=== PATIENT | male | born 1980 | race Caucasian/White ===

== ENCOUNTER 2017-04-11 20:16 | Emergency (ER) | payer SELFPAY ==
[2017-04-11 20:24] VITALS: BP 149/94; BMI 45.9
--- NOTE | 2017-04-11 21:07 | DR.GENAD ---
HPI - Complaint/Symptoms Chief Complaint Doctors Comments: Patient states he was coughing and suddenly he stopped breathing, eyes looke bloody, staring like he did not know where he was lasting about two minutes. States he did not have any shaking episodes nor did he have urine or fecal incontinent. States he smokes cannabis three times daily about 0.3 ug. He has been complaining of chest pain, headache and blurred vision with nausea but no vomiting. States he has schizo- affective disorder and is taking Depokoate 500mg daily; Effexon, Albilify; Lisinopril; omeprazole; mobic 15 and xanax 0.5mg bid. States he was told he has had seizures in the past. states his father has history of bad seizures. He denies alcohol usage. Chief Complaint:: pt states pt was having a "coughing fit" and he lost his breath and "slumped over" Self Treatment fo Chief Complaint: pt takes symbicort - Nurses notes reviewed Nurses Notes Review: Yes - Source History Provided: Patient - Mode of Arrival Mode of Arrival: Ambulatory - Timing Onset of Chief Complaint: 04/11/17 Came on: Suddenly - Duration Duration: Intermittent How lon Duration: Hours - Location Location: diffuse headache - Severity Severity: Moderate - Modifying Factors Worsens:: nothing Improves:: nothing PMH - PMH Past Medical History: Yes Past Medical History: Anxiety, Arthritis, Asthma, COPD, Depression, GERD, Hypertension, Schizophrenia Past Surgical History: No Surgical History: Unknown - Family History History of Family Medical Conditions: Yes Family Medical History: Diabetes Mellitus, Cancer, [place], Hypertension - Social History Do you use any recreational Drugs:: Yes (THC) - infectious screening Have you traveled outside the country in the last 6 months?: No ROS - Review of Systems Constitutional: No Symptoms Reported. negative: See HPI, Chills, Diaphoresis, Fever, Malaise, Weakness, Irritable, Fatigue, Loss of Appetite, Other Eyes: No Symptoms Reported, Blurred Vision. negative: See HPI, Eye Pain, Tearing, Discharge, Photophobia, Diplopia, Other ENTM: No Symptoms Reported. negative: See HPI, Ear Pain, Ear Discharge, Pulling on Ears, Hearing Loss, Nose Pain, Nose Discharge, Epistaxis, Nose Congestion, Mouth Pain, Mouth Swelling, Loose Teeth, Drooling, Throat Pain, Throat Swelling, Ear Foreign Body Respiratoy: No Symptoms Reported. negative: See HPI, Productive Cough, Non- Productive Cough, Moist Cough, Dry Cough, Hacking Cough, Barking Cough, Brassy Cough, Orthopnea, Short of Breath, Stridor, Wheezing, Hemoptysis, Other Cardiovascular: Chest Pain Gastrointestinal/Abdominal: No Symptoms Reported, Nausea. negative: See HPI, Abdominal Pain, Constipation, Diarrhea, Vomiting, Food Intolerance, Other Genitourinary: No Symptoms Reported. negative: See HPI, Discharge, Dysuria, Frequency, Hematuria, Pain, Bleeding, Other Neurological: No Symptoms Reported, Emotional Problems, Headache, Dizziness Musculoskeletal: No Symptoms Reported Integumentary: No Symptoms Reported Hematologic/Lymphatic: No Symptoms Reported Endocrine: No Symptoms Reported Psychiatric: No Symptoms Reported, Anxiety PE - Vital Signs Vitals: Pulse Rate 100 Respiratory Rate 18 Blood Pressure 149/94 O2 Sat by Pulse Oximetry 98 - General Limitations: No Limitations General Appearance: Alert, In No Apparent Distress - Head Head Exam: Normal Inspection, Atraumatic, Normocephalic - Eyes Eye exam: Normal Appearance, PERRL, EOMI. negative: Scleral Icterus, Conjunctival Injection, Nystagmus, Miosis, Mydrasis, Periorbital Swelling, Periorbital Tenderness, Other - ENT ENT Exam: Normal Exam, Normal Oropharynx, Normal External Ear Exam, TM's Normal Bilaterally. negative: Mucous Membranes Moist, Mucous Membranes Dry, Other External Ear Exam: Normal External Inspection. negative: Auricular Hematoma, Auricular Trauma, Mastoid Tenderness, Pain with Movement, External Tenderness, Periauricular Adenopathy, Other TM/Canal Exam: Bilateral Normal Nose Exam: Normal Nose Exam Mouth Exam: Normal Inspection. negative: Drooling, Trismus, Lip Swelling, Tongue Elevation, Tongue Swelling, Laceration, Other Throat Exam: Normal Inspection - Neck Neck Exam: Normal Inspection, Full ROM, Trachea Midline. negative: Tenderness, Meningismus, Lymphadenopathy, Thyromegaly, Other - Chest Chest Inspection: Normal Inspection, Symmetric Chest Wall Rise. negative: Tenderness, Rash, Abscess, Other - Respiratory Respiratory Exam: Normal Lung Sounds Bilat Respiratory Exam: Bilateral Clear to Auscultation - Cardiovascular Cardiovascular Exam: Regular Rate, Normal Rhythm, Normal Heart Sounds. negative : Bradycardia, Tachycardia, Irregular Rhythm, Systolic Murmur, Diastolic Murmur , Rubs, Gallop, Clicks, JVD, +S1, +S2, +S3, +S4, Other - Abdominal Exam Abdominal Exam: Normal Inspection, Normal Bowel Sounds, Soft. negative: Distention, Tenderness, Guarding, Rebound, Rigidity, Dimnished Bowel Sounds, Hyperactive Bowel Sounds, Hypoactive Bowel Sounds, Organomegaly, Trauma, Incision, Ascites, Mass, Bruit, Pulsatile Mass, Hernia, Other Abdominal Tenderness: negative: RUQ, RLQ, LUQ, LLQ, Epigastrium, Suprapubic, Diffuse, Mild, Moderate, Severe, Other - Extremities Extremities Exam: Normal Inspection, Full ROM, Normal Capillary Refill. negative: Tenderness, Edema, Joint Swelling, Calf Tenderness, Other - Back Back Exam: Normal Inspection, Full ROM. negative: Tenderness, (R) CVA Tenderness, (L) CVA Tenderness, Muscle Spasm, Paraspinal Tenderness, Vertebral Tenderness, Rashes, (R) Sciatic Notch Tenderness, (L) Sciatic Notch Tendern, (R ) Straight Leg Raise, (L) Straight Leg Raise, Other - Neurologic Neurological Exam: Alert, Oriented X3, CN II-XII Intact, Normal Gait, Reflexes Normal - Psychiatric Psychiatric Exam: Normal Affect, Normal Mood, Depressed - Skin Skin Exam: Warm, Dry, Intact, Normal Color ROR - Labs Reviewed Laboratory Results Reviewed?: Yes (all labs and x-ray results reviewed and discussed with patient) Result Diagrams: 04/11/17 21:20 04/11/17 21:20 Laboratory: WBC 14.2 X10^3/uL (3.6-10.0) H 04/11/17 21:20 RBC 3.99 X10^6/uL (4.7-6.0) L 04/11/17 21:20 Hgb 11.7 g/dL (13.5-18.0) L 04/11/17 21:20 Hct 34.5 % (42.0-54.0) L 04/11/17 21:20 MCV 86.3 fL (80.0-100.0) 04/11/17 21:20 MCH 29.4 pg (27.0-34.0) 04/11/17 21:20 MCHC 34.0 g/dL (33.0-35.0) 04/11/17 21:20 RDW 12.6 % (11.6-16.5) 04/11/17 21:20 Plt Count 363 X10^3/uL (150.0-450.0) 04/11/17 21:20 MPV 8.3 fL (7.4-11.0) 04/11/17 21:20 Neut % 68.4 % (42.0-75.0) 04/11/17 21:20 Lymph % 20.6 % (21.0-51.0) L 04/11/17 21:20 [place]son % 7.0 % (0.0-13.0) 04/11/17 21:20 Eos % 2.7 % (0.9-2.9) 04/11/17 21:20 Baso % 1.3 % (0.2-1.0) H 04/11/17 21:20 Neut # 9.7 x10^3/uL (2.2-4.8) H 04/11/17 21:20 Lymph # 2.9 X10^3/uL (1.3-2.9) 04/11/17 21:20 [place] # 1.0 x10^3/uL (0.3-0.8) H 04/11/17 21:20 Eos # 0.4 x10^3/uL (0.0-0.2) H 04/11/17 21:20 Baso # 0.2 X10^3/uL (0.0-0.1) H 04/11/17 21:20 Absolute Nucleated RBC 0.0 /100WBC 04/11/17 21:20 INR Target Range - 04/11/17 21:20 INR 0.95 (0.8-1.3) 04/11/17 21:20 PTT 29.7 SECONDS (22.9-36.5) 04/11/17 21:20 PTT Comment - 04/11/17 21:20 D-Dimer < 100 ng/mL (0-400) 04/11/17 21:20 Sodium 140 mmol/L (136-145) 04/11/17 21:20 Corrected Sodium 141 mmol/L (136-145) 04/11/17 21:20 Potassium 3.4 mmol/L (3.5-5.1) L 04/11/17 21:20 Chloride 104 mmol/L (98-107) 04/11/17 21:20 Carbon Dioxide 27.6 mmol/L (21-32) 04/11/17 21:20 BUN 10 mg/dL (7-18) 04/11/17 21:20 Creatinine 1.09 mg/dL (0.70-1.30) 04/11/17 21:20 Est GFR (MDRD) Af Amer > 60 (>60) 04/11/17 21:20 Est GFR (MDRD) Non-Af > 60 (>60) 04/11/17 21:20 Glucose 129 mg/dL (65-99) H 04/11/17 21:20 Calcium 8.9 mg/dL (8.5-10.1) 04/11/17 21:20 Corrected Calcium 9.5 mg/dL (8.5-10.1) 04/11/17 21:20 Magnesium 2.0 mg/dL (1.7-2.9) 04/11/17 21:20 Total Bilirubin 0.20 mg/dL (0.2-1.0) 04/11/17 21:20 AST 20 Units/L (15-37) 04/11/17 21:20 ALT 42 Units/L (12-78) 04/11/17 21:20 Alkaline Phosphatase 86 Units/L (46-116) 04/11/17 21:20 Creatine Kinase 153 Units/L (39-308) 04/11/17 21:20 CK-MB (CK-2) 1.1 ng/mL (0-4.0) 04/11/17 21:20 CK/CKMB % Calc 0.7 % (<4) 04/11/17 21:20 Troponin I < 0.02 ng/mL (0-1.5) 04/11/17 21:20 Total Protein 7.0 g/dL (6.4-8.2) 04/11/17 21:20 Albumin 3.3 g/dL (3.4-5.0) L 04/11/17 21:20 Globulin 3.7 g/dL (2.5-4.5) 04/11/17 21:20 Albumin/Globulin Ratio 0.9 Ratio (1.1-2.1) L 04/11/17 21:20 Valproic Acid 5.6 ug/mL (50-100) L 04/11/17 21:20 - XRAY XRAY Interpreted by: Radiologist (CT brain: no acute intracranial proces can be identified) - Diagnosis Discharge Problem: Bronchitis, probable seizure disorder, Headache, Essential hypertension, Hyperkalemia - Discharge Plan Disposition: 01 HOME, SELF-CARE Condition: Stable Prescriptions: Albuterol Sulfate [VENTOLIN or PROAIR HFA Inhaler *] 2 puff INH Q4H PRN #1 inh PRN Reason: Asthma Symptoms Ciprofloxacin HCl [CIPRO 500 MG TAB *] 500 mg PO Q12H #20 tab - Follow ups/Referrals Follow ups/Referrals: DEREK BLOOM [Primary Care Provider] - 3 days - Instructions Instructions: Epilepsy, [id number], Hypertension, [id number], Acute Bronchitis
[2017-04-11 21:34] LABS: BASOPHILS # (AUTO) 0.2 X10^3/uL (0.0-0.1); BASOPHILS % (AUTO) 1.3 % (0.2-1.0); EOSINOPHILS # (AUTO) 0.4 x10^3/uL (0.0-0.2); EOSINOPHILS % (AUTO) 2.7 % (0.9-2.9); HEMATOCRIT 34.5 % (42.0-54.0); HEMOGLOBIN 11.7 g/dL (13.5-18.0); LYMPHOCYTES # (AUTO) 2.9 X10^3/uL (1.3-2.9); LYMPHOCYTES % (AUTO) 20.6 % (21.0-51.0); MEAN CORPUSCULAR HEMOGLOBIN 29.4 pg (27.0-34.0); MEAN CORPUSCULAR VOLUME 86.3 fL (80.0-100.0); MEAN PLATELET VOLUME 8.3 fL (7.4-11.0); NEUTROPHILS # (AUTO) 9.7 x10^3/uL (2.2-4.8); NEUTROPHILS % (AUTO) 68.4 % (42.0-75.0); PLATELET COUNT 363 X10^3/uL (150.0-450.0); RED BLOOD COUNT 3.99 X10^6/uL (4.7-6.0); RED CELL DISTRIBUTION WIDTH 12.6 % (11.6-16.5); WHITE BLOOD COUNT 14.2 X10^3/uL (3.6-10.0)
[2017-04-11 21:48] LABS: BLOOD UREA NITROGEN 10 mg/dL (7-18); CALCIUM 8.9 mg/dL (8.5-10.1); CARBON DIOXIDE 27.6 mmol/L (21-32); CHLORIDE 104 mmol/L (98-107); COR NA(FOR HYPERGLY) 141 mmol/L (136-145); CREATININE 1.09 mg/dL (0.70-1.30); SODIUM 140 mmol/L (136-145); TROPONIN I < 0.02 ng/mL (0-1.5); VALPROIC ACID 5.6 ug/mL (50-100); eGFR BLACK RACES > 60 (>60); eGFR NON BLACK RACES > 60 (>60)
[2017-04-11 21:51] LABS: D DIMER < 100 ng/mL (0-400)
[2017-04-11 21:52] LABS: ALANINE AMINOTRANSFERASE 42 Units/L (12-78); ALBUMIN 3.3 g/dL (3.4-5.0); ALKALINE PHOSPHATASE 86 Units/L (46-116); ASPARTATE AMINO TRANSFERASE 20 Units/L (15-37); CKMB % 0.7 % (<4); COR CA(FOR HYPOALB) 9.5 mg/dL (8.5-10.1); CREATINE KINASE 153 Units/L (39-308); CREATINE KINASE MB 1.1 ng/mL (0-4.0)
--- NOTE | 2017-04-11 22:38 | CT ---
HISTORY: Cough, syncope. History of seizure. Study: CT brain without contrast Comparison: 08/03/2013 Technique: Multiple axial images of the brain were obtained from the skull base to the vertex without administra tion of IV contrast. Automated exposure control (AEC) was utilized to adjust the MA and/or kV accordi ng to patient size. Findings: There is no acute intracranial hemorrhage. The brain parenchyma is normal in density. No mass or ma ss effect. No abnormal extra-axial fluid collection. The ventricles are normal in size, shape and position. Basilar cisterns patent. Owens matter -white m atter interface is distinct. The bilateral mastoid air cells and included paranasal sinuses are predominantly clear. There is no acute osseous abnormality. IMPRESSION: 1. No acute intracranial process can be identified. Reported By:
[2017-04-11] MEDS ORDERED: DUONEB 0.5 MG/3 MG NEB ONE (23:24)
[2017-04-11] MEDS ORDERED: DUONEB 0.5 MG/3 MG ONE (23:33)
[2017-04-11] MEDS ORDERED: LEVAQUIN TAB 500 MG ONE (23:36)
[2017-04-11] MEDS ORDERED: LEVAQUIN TAB 500 MG PO SCH (23:45)
--- NOTE | 2017-04-12 00:17 | RAD ---
HISTORY: Chest pain Study: AP chest. Comparison:NONE Findings: The lungs are clear. No consolidation. There are no pleural effusions. The deanna and cardiomediastinal silhouette appear normal. IMPRESSION: 1. No radiographic evidence of an acute cardiopulmonary process. Reported By:
== END 2017-04-12 00:04 | disposition home or self-care (01) ==
LOC: ER 20:16
DX: J40 Bronchitis, not specified as acute or chronic (principal); R51 Headache; I10 Essential (primary) hypertension; E87.5 Hyperkalemia
CPT/HCPCS: 36415; 70450; 71010; 80053; 80164; 82550; 82553; 83735; 84484; 85025; 85378; 85610; 85730; 93005; 93010; 94640; 99283; J7620

== ENCOUNTER 2017-12-14 14:37 | Emergency (ER) | payer SELFPAY ==
[2017-12-14 14:50] VITALS: BMI 33.0
--- NOTE | 2017-12-14 15:50 | DR.GENAD ---
HPI - HPI Comment HPI Comment: SAID FRIEND BROUGHT PATIENT TO HER AT HOME SAYING PATIENT TOOK 15 PILLS OF TRAZODON AND THE SAME FRIEND TEXT THE THAT PATIENT TOOK A HAND FULL OF ATIVAN ALSO. PATIENT SAID HE TOOK MED TO HELP HIM TAKE A NAP. HE DENIES SUICIDAL AND HOMICIDAL IDEATION. SAID SHE IS CONCERN ABOUT PATIENT. HE IS OUT OF - Complaint/Symptoms Chief Complaint Doctors Comments: ALLEGE DRUG OVERDOSE THIS AFTERNOON. Chief Complaint:: Pt states, "I just wanted to take a nap. I don't want to be seen here or admitted. I'd like to sign myself out." Per EMS and [facility] Office pt admitted to take Ativan of unknown amount and at least 20 trazadones. Pt currently denies any suicidal ideations or intent to harm himself. - Nurses notes reviewed Nurses Notes Review: Yes - Source History Provided: Patient, Parent - Mode of Arrival Mode of Arrival: Stretcher - Timing Onset of Chief Complaint: 12/14/17 Came on: Suddenly - Duration Duration: Constant Duration: Hours - Severity Severity: Moderate PMH - PMH Past Medical History: Yes Past Medical History: Hypertension, Schizophrenia Past Medical History Comment: Degenerative Disc Disease Past Surgical History: Yes Surgical History: Unknown Past Surgical History Comment: ear surgery - Family History History of Family Medical Conditions: Yes Family Medical History: Diabetes Mellitus, Hypertension - Social History Does patient currently use any type of tobacco product: Yes Have you used tobacco products in the last 12 months: No Type of Tobacco Use: Cigarettes Does any household member use tobacco: Yes Alcohol Use: None Do you use any recreational Drugs:: Yes (marijuana) Lives Where: Home - infectious screening In the last 2 months have you had wt loss of >10#?: NO Have you had fever, night sweats or hemotysis?: No Have you traveled outside the country in the last 6 months?: No Isolation: Standard ROS - Review of Systems Constitutional: No Symptoms Reported Eyes: No Symptoms Reported ENTM: No Symptoms Reported Respiratoy: No Symptoms Reported Cardiovascular: No Symptoms Reported Gastrointestinal/Abdominal: No Symptoms Reported Genitourinary: No Symptoms Reported Neurological: No Symptoms Reported Musculoskeletal: No Symptoms Reported Integumentary: No Symptoms Reported Hematologic/Lymphatic: No Symptoms Reported Endocrine: No Symptoms Reported Psychiatric: Hallucinations (CHRONIC) All Other Systems: Reviewed and Negative PE - Vital Signs Vitals: Temperature 98.0 F Pulse Rate [Left] 100 Pulse Rate 95 Respiratory Rate 18 Blood Pressure [Left Arm] 142/88 Blood Pressure 159/89 O2 Sat by Pulse Oximetry 97 - General Limitations: No Limitations General Appearance: Alert - Head Head Exam: Normal Inspection - Eyes Eye exam: Normal Appearance - ENT ENT Exam: Normal External Ear Exam External Ear Exam: Normal External Inspection TM/Canal Exam: Bilateral Normal Nose Exam: Normal Nose Exam Mouth Exam: Normal Inspection Throat Exam: Normal Inspection - Neck Neck Exam: Trachea Midline - Chest Chest Inspection: Symmetric Chest Wall Rise - Respiratory Respiratory Exam: Normal Lung Sounds Bilat Respiratory Exam: Bilateral Clear to Auscultation - Cardiovascular Cardiovascular Exam: Regular Rate, Normal Rhythm, Normal Heart Sounds - Abdominal Exam Abdominal Exam: Normal Bowel Sounds, Soft. negative: Tenderness - Extremities Extremities Exam: Normal Inspection - Back Back Exam: Normal Inspection - Neurologic Neurological Exam: Alert, Oriented X3 - Psychiatric Psychiatric Exam: Anxious - Skin Skin Exam: Normal Color MDM - Additional Information Additional Information Obtained From: Family - Differential Diagnosis Differential Diagnosis: ALLEGE DRUG OVERDOSE, MEDICAL CLEARANCE, SUBSTANCE ABUSE , Course - Treatment Treatment: SEE ORDERS. - Consultation Consultation Comments: MENTAL HEALTH CONSULT. PATIENT MEDICALLY CLEAR. - Education/Counseling Education/Counseling: Patient, Family, Education Educated On: Diagnosis, Needs for Follow Up ROR - Labs Reviewed Laboratory Results Reviewed?: Yes Result Diagrams: 12/15/17 06:58 12/14/17 17:38 Laboratory: WBC 11.9 X10^3/uL (3.6-10.0) H 12/15/17 06:58 RBC 4.79 X10^6/uL (4.7-6.0) 12/15/17 06:58 Hgb 13.8 g/dL (13.5-18.0) 12/15/17 06:58 Hct 40.2 % (42.0-54.0) L 12/15/17 06:58 MCV 84.0 fL (80.0-100.0) 12/15/17 06:58 MCH 28.7 pg (27.0-34.0) 12/15/17 06:58 MCHC 34.2 g/dL (33.0-35.0) 12/15/17 06:58 RDW 13.0 % (11.6-16.5) 12/15/17 06:58 Plt Count 367 X10^3/uL (150.0-450.0) 12/15/17 06:58 MPV 8.8 fL (7.4-11.0) 12/15/17 06:58 Neut % (Auto) 72.8 % (42.0-75.0) 12/15/17 06:58 Lymph % (Auto) 19.8 % (21.0-51.0) L 12/15/17 06:58 [place] % (Auto) 5.6 % (0.0-13.0) 12/15/17 06:58 Eos % (Auto) 0.9 % (0.9-2.9) 12/15/17 06:58 Baso % (Auto) 0.9 % (0.2-1.0) 12/15/17 06:58 Neut # (Auto) 8.7 x10^3/uL (2.2-4.8) H 12/15/17 06:58 Lymph # (Auto) 2.3 X10^3/uL (1.3-2.9) 12/15/17 06:58 [place] # (Auto) 0.7 x10^3/uL (0.3-0.8) 12/15/17 06:58 Eos # (Auto) 0.1 x10^3/uL (0.0-0.2) 12/15/17 06:58 Baso # (Auto) 0.1 X10^3/uL (0.0-0.1) 12/15/17 06:58 Absolute Nucleated RBC 0.0 /100WBC 12/15/17 06:58 Sodium 137 mmol/L (136-145) 12/14/17 17:38 Corrected Sodium TNP 12/14/17 17:38 Potassium 3.4 mmol/L (3.5-5.1) L 12/14/17 17:38 Chloride 103 mmol/L (98-107) 12/14/17 17:38 Carbon Dioxide 21.5 mmol/L (21-32) 12/14/17 17:38 BUN 8 mg/dL (7-18) 12/14/17 17:38 Creatinine 1.10 mg/dL (0.70-1.30) 12/14/17 17:38 Est GFR (MDRD) Af Amer > 60 (>60) 12/14/17 17:38 Est GFR (MDRD) Non-Af > 60 (>60) 12/14/17 17:38 Glucose 110 mg/dL (65-99) H 12/14/17 17:38 Calcium 8.4 mg/dL (8.5-10.1) L 12/14/17 17:38 Corrected Calcium TNP 12/14/17 17:38 Total Bilirubin 0.60 mg/dL (0.2-1.0) 12/14/17 17:38 AST 22 Units/L (15-37) 12/14/17 17:38 ALT 34 Units/L (12-78) 12/14/17 17:38 Alkaline Phosphatase 79 Units/L (46-116) 12/14/17 17:38 Total Protein 8.0 g/dL (6.4-8.2) 12/14/17 17:38 Albumin 4.0 g/dL (3.4-5.0) 12/14/17 17:38 Globulin 4.0 g/dL (2.5-4.5) 12/14/17 17:38 Albumin/Globulin Ratio 1.0 Ratio (1.1-2.1) L 12/14/17 17:38 Specimen Type Clean catch urine 12/14/17 17:53 Urine Color Yellow (YELLOW) 12/14/17 17:53 Urine Appearance Slightly hazy (CLEAR) 12/14/17 17:53 Urine pH 5.0 (5.0 - 8.0) 12/14/17 17:53 Ur Specific [place] 1.015 (1.000-1.030) 12/14/17 17:53 Urine Protein 1+ (NEGATIVE) 12/14/17 17:53 Urine Glucose (UA) Negative (NEGATIVE) 12/14/17 17:53 Urine Ketones Negative (NEGATIVE) 12/14/17 17:53 Urine Occult Blood 1+ (NEGATIVE) 12/14/17 17:53 Urine Nitrite Negative (NEGATIVE) 12/14/17 17:53 Urine Bilirubin Negative (NEGATIVE) 12/14/17 17:53 Urine Urobilinogen Normal (NORMAL) 12/14/17 17:53 Ur Leukocyte Esterase 1+ (NEGATIVE) 12/14/17 17:53 Urine RBC 0-2 /HPF (NONE SEEN) 12/14/17 17:53 Urine WBC 0-2 /HPF (NONE SEEN) 12/14/17 17:53 Ur Squamous Epith Cells Negative /HPF (NEGATIVE) 12/14/17 17:53 Urine Bacteria Negative /HPF (NEGATIVE) 12/14/17 17:53 Urine Mucus Few /HPF (NEGATIVE) 12/14/17 17:53 Ur Culture Indicated? No/not indicated 12/14/17 17:53 Salicylates < 2.8 mg/dL (2.8-20) L 12/14/17 17:38 Urine Opiates Screen Negative (NEG=<300) 12/14/17 17:53 Urine Methadone Screen Negative (NEG=<300) 12/14/17 17:53 Acetaminophen 0.0 ug/mL (10-30) L 12/14/17 17:38 Ur Barbiturates Screen Negative (NEG=<200) 12/14/17 17:53 Ur Phencyclidine Scrn Negative (NEG=<25) 12/14/17 17:53 Ur Amphetamines Screen Negative (NEG=<1000) 12/14/17 17:53 U Benzodiazepines Scrn Negative (NEG=<200) 12/14/17 17:53 Urine Cocaine Screen Positive (NEG=<300) 12/14/17 17:53 U Marijuana (THC) Screen Positive (NEG=<50) A 12/14/17 17:53 Ethyl Alcohol mg/dL < 3 mg/dL (0-19.9) 12/14/17 17:38 - EKG Rhythm: NSR (EKG NOTED) - Diagnosis Discharge Problem: Drug abuse Schizophrenia Qualifiers: Schizophrenia type: unspecified Qualified Code(s): F20.9 - Schizophrenia, unspecified Drug overdose Qualifiers: Encounter type: initial encounter Injury intent: undetermined intent Qualified Code(s): T50.904A - Poisoning by unspecified drugs, medicaments and biological substances, undetermined, initial encounter - Discharge Plan Condition: Stable - Follow ups/Referrals Follow ups/Referrals: NFD,None [Primary Care Provider] - 3 days - Instructions
[2017-12-14 17:46] LABS: BASOPHILS # (AUTO) 0.1 X10^3/uL (0.0-0.1); BASOPHILS % (AUTO) 0.8 % (0.2-1.0); EOSINOPHILS # (AUTO) 0.1 x10^3/uL (0.0-0.2); EOSINOPHILS % (AUTO) 0.7 % (0.9-2.9); HEMATOCRIT 39.5 % (42.0-54.0); HEMOGLOBIN 13.5 g/dL (13.5-18.0); LYMPHOCYTES # (AUTO) 2.6 X10^3/uL (1.3-2.9); LYMPHOCYTES % (AUTO) 17.2 % (21.0-51.0); MEAN CORPUSCULAR HEMOGLOBIN 28.6 pg (27.0-34.0); MEAN CORPUSCULAR HGB CONC 34.2 g/dL (33.0-35.0); MEAN CORPUSCULAR VOLUME 83.6 fL (80.0-100.0); MEAN PLATELET VOLUME 8.5 fL (7.4-11.0); MONOCYTES % (AUTO) 6.3 % (0.0-13.0); NEUTROPHILS # (AUTO) 11.4 x10^3/uL (2.2-4.8); PLATELET COUNT 353 X10^3/uL (150.0-450.0); RED BLOOD COUNT 4.73 X10^6/uL (4.7-6.0); WHITE BLOOD COUNT 15.2 X10^3/uL (3.6-10.0)
[2017-12-14 18:14] LABS: BILIRUBIN,URINE NEGATIVE (NEGATIVE); BLOOD/HEMOGLOBIN,URINE 1+ (NEGATIVE); GLUCOSE, URINE NEGATIVE (NEGATIVE); KETONES,URINE NEGATIVE (NEGATIVE); LEUKOCYTE ESTERASE ,URINE 1+ (NEGATIVE); NITRITES,URINE NEGATIVE (NEGATIVE); PROTEIN,URINE 1+ (NEGATIVE); UROBILINOGEN,URINE NORMAL (NORMAL)
[2017-12-14 18:19] LABS: COLOR,URINE YELLOW (YELLOW)
[2017-12-14 18:21] LABS: APPEARANCE,URINE SLIGHTLY HAZY (CLEAR)
[2017-12-14 18:22] LABS: BACTERIA,URINE NEGATIVE /HPF (NEGATIVE); MUCUS,URINE FEW /HPF (NEGATIVE); RBC,URINE 0-2 /HPF (NONE SEEN); SQUAMOUS EPITHELIAL CELL,UR NEGATIVE /HPF (NEGATIVE)
[2017-12-14 18:38] LABS: SALICYLATE < 2.8 mg/dL (2.8-20)
[2017-12-14 18:45] LABS: ALANINE AMINOTRANSFERASE 34 Units/L (12-78); ALKALINE PHOSPHATASE 79 Units/L (46-116); ASPARTATE AMINO TRANSFERASE 22 Units/L (15-37); BLOOD UREA NITROGEN 8 mg/dL (7-18); CALCIUM 8.4 mg/dL (8.5-10.1); CARBON DIOXIDE 21.5 mmol/L (21-32); CHLORIDE 103 mmol/L (98-107); SODIUM 137 mmol/L (136-145); eGFR BLACK RACES > 60 (>60); eGFR NON BLACK RACES > 60 (>60)
[2017-12-14 18:47] LABS: BLOOD ALCOHOL < 3 mg/dL (0-19.9)
[2017-12-15 06:25] VITALS: BP 142/88
[2017-12-15 07:09] LABS: BASOPHILS # (AUTO) 0.1 X10^3/uL (0.0-0.1); BASOPHILS % (AUTO) 0.9 % (0.2-1.0); EOSINOPHILS # (AUTO) 0.1 x10^3/uL (0.0-0.2); EOSINOPHILS % (AUTO) 0.9 % (0.9-2.9); HEMATOCRIT 40.2 % (42.0-54.0); HEMOGLOBIN 13.8 g/dL (13.5-18.0); LYMPHOCYTES # (AUTO) 2.3 X10^3/uL (1.3-2.9); LYMPHOCYTES % (AUTO) 19.8 % (21.0-51.0); MEAN CORPUSCULAR HEMOGLOBIN 28.7 pg (27.0-34.0); MEAN CORPUSCULAR HGB CONC 34.2 g/dL (33.0-35.0); MEAN PLATELET VOLUME 8.8 fL (7.4-11.0); MONOCYTES # (AUTO) 0.7 x10^3/uL (0.3-0.8); MONOCYTES % (AUTO) 5.6 % (0.0-13.0); NEUTROPHILS # (AUTO) 8.7 x10^3/uL (2.2-4.8); NEUTROPHILS % (AUTO) 72.8 % (42.0-75.0); PLATELET COUNT 367 X10^3/uL (150.0-450.0); RED BLOOD COUNT 4.79 X10^6/uL (4.7-6.0); WHITE BLOOD COUNT 11.9 X10^3/uL (3.6-10.0)
[2017-12-15] MEDS ORDERED: HALDOL INJ IM ONE (08:22)
[2017-12-15] MEDS ORDERED: HALDOL INJ ONE (08:23)
== END 2017-12-16 00:16 ==
LOC: ER 14:50
DX: F19.10 Other psychoactive substance abuse, uncomplicated (principal); F20.9 Schizophrenia, unspecified; T50.904A Poisoning by unspecified drugs, medicaments and biological substances, undetermined, initial encounter
CPT/HCPCS: 36415; 80053; 80307; 81001; 85025; 93005; 93010; 96372; 99285; G0434; G6038; G6039; G6040; J1630